=== PATIENT | female | born 1980 ===

== ENCOUNTER → 2020-11-24 | Outpatient (CLI) | payer SELFPAY ==
--- NOTE | 2020-11-24 16:15 | RAD ---
EXAM: Pelvic sonogram. HISTORY: Menorrhagia. TECHNIQUE: Transvaginal sonographic imaging of the pelvis was performed. COMPARISON: None. FINDINGS: The uterus it is retroverted and measures 8.1 x 7.0 x 4.9 cm. There are 3 measurable uterin e fibroids, measuring 1.7 x 1.6 x 1.1 cm within the anterior uterine fundus, 1.7 x 1.3 x 1.1 cm withi n the superior uterine fundus and 1.4 x 1.4 x 1.4 cm within the posterior uterine fundus. The endomet rial stripe measures 1.5 mm in thickness. The ovaries are normal in size and demonstrate normal blood flow. There is a 1.8 cm left ovarian cyst with internal septation. There is a 1.8 cm right paraovari an cyst. There are multiple left ovarian follicles. There is no pelvic free fluid. IMPRESSION: 1. 3 measurable uterine fibroids measuring 1.7 cm, 1.7 cm and 1.4 cm. 2. Thin endometrial stripe. 3. 1.8 cm left ovarian cyst with internal septation and 1.8 cm paraovarian cyst. Electronically signed by: Patti Fam MD (11/24/2020 4:13 PM) [id number]
== END ==
LOC: US 14:47
PROVIDERS: ATTEND Physician Assistant Medical
DX: D25.9 Leiomyoma of uterus, unspecified (principal); N92.0 Excessive and frequent menstruation with regular cycle; N83.291 Other ovarian cyst, right side
CPT/HCPCS: 76830; 76856